=== PATIENT | female | born 1940 | race Caucasian/White ===

== ENCOUNTER 2020-10-08 12:29 | Inpatient (IN) | payer OTHER ==
[~2020-10-08] VITALS: Ht 157.5 cm; Wt 90.7 kg
[2020-10-08] MEDS ORDERED: HORIZANT300 MG (12:45)
[2020-10-08] MEDS ORDERED: SIMVASTATIN80 MG (12:45)
[2020-10-08] MEDS ORDERED: HUMALOG100 UNIT/2 (12:46)
[2020-10-08] MEDS ORDERED: OSTERA TABLET1 EACH (22:07)
[2020-10-08] MEDS ORDERED: SYNTHROID137 MCG (22:07)
[2020-10-08] MEDS ORDERED: OMEPRAZOLE MAGN20 MG (22:07)
[2020-10-08] MEDS ORDERED: IRBESARTAN-HCT1 EAC1 (22:07)
[2020-10-08] MEDS ORDERED: NORVASC2.5 M1 (22:08)
[2020-10-08] MEDS ORDERED: CHILDREN'S ASPI81 MG (22:08)
[2020-10-08] MEDS ORDERED: FOLIC ACID20 MG (22:09)
[2020-10-11] MEDS ORDERED: OMEPRAZOLE20 MG (11:32)
[2020-10-11] MEDS ORDERED: GABAPENTIN600 MG (11:33)
[2020-10-11] MEDS ORDERED: JARDIANCE10 MG (11:33)
[2020-10-11] MEDS ORDERED: LATANOPROST2.5 ML (11:33)
[2020-10-11] MEDS ORDERED: ALLOPURINOL100 MG (11:33)
[2020-10-11] MEDS ORDERED: GEMFIBROZIL600 MG (11:33)
[2020-10-11] MEDS ORDERED: METFORMIN HCL850 M1 (11:34)
[2020-10-11] MEDS ORDERED: SEMGLEE100 UNIT/1 (11:34)
[2020-10-11] MEDS ORDERED: PIOGLITAZONE HC15 MG (11:34)
[2020-10-11] MEDS ORDERED: VITAMIN D3125 MC1 (11:34)
[2020-10-17] MEDS ORDERED: ULTRAM50 MG PO (14:04)
[2020-10-17] MEDS ORDERED: AMOX-CLAV 875-1 EACH PO (14:05)
== END 2020-10-17 17:47 | disposition home or self-care (01) | DRG 330 ==
LOC: ER 12:29 → SURG 20:17 → SEC-K 20:17 → SURG 10-09 02:27
PROVIDERS: ADMIT Surgery; ATTEND Surgery
PROC: B24BZZZ Ultrasonography of Heart with Aorta (ICD-10-PCS; 2020-10-09)
PROC: 02HV33Z Insertion of Infusion Device into Superior Vena Cava, Percutaneous Approach (ICD-10-PCS; 2020-10-09)
PROC: 0DBM8ZX Excision of Descending Colon, Via Natural or Artificial Opening Endoscopic, Diagnostic (ICD-10-PCS; 2020-10-10)
PROC: 0DBL8ZX Excision of Transverse Colon, Via Natural or Artificial Opening Endoscopic, Diagnostic (ICD-10-PCS; 2020-10-10)
PROC: 0DBN8ZX Excision of Sigmoid Colon, Via Natural or Artificial Opening Endoscopic, Diagnostic (ICD-10-PCS; 2020-10-10)
PROC: BW2510Z Computerized Tomography (CT Scan) of Chest, Abdomen and Pelvis using Low Osmolar Contrast, Unenhanced and Enhanced (ICD-10-PCS; 2020-10-10)
PROC: BW2110Z Computerized Tomography (CT Scan) of Abdomen and Pelvis using Low Osmolar Contrast, Unenhanced and Enhanced (ICD-10-PCS; 2020-10-10)
PROC: 07BD0ZX Excision of Aortic Lymphatic, Open Approach, Diagnostic (ICD-10-PCS; 2020-10-11)
PROC: 0DBU0ZZ Excision of Omentum, Open Approach (ICD-10-PCS; 2020-10-11)
PROC: 3E0F7SF Introduction of Other Gas into Respiratory Tract, Via Natural or Artificial Opening (ICD-10-PCS; 2020-10-11)
PROC: 0DTL0ZZ Resection of Transverse Colon, Open Approach (ICD-10-PCS; principal; 2020-10-11 14:30)
PROC: 05PYX3Z Removal of Infusion Device from Upper Vein, External Approach (ICD-10-PCS; 2020-10-17)
DX: K56.609 Unspecified intestinal obstruction, unspecified as to partial versus complete obstruction (principal); C18.4 Malignant neoplasm of transverse colon; R10.9 Unspecified abdominal pain; E11.9 Type 2 diabetes mellitus without complications; Z79.4 Long term (current) use of insulin; R11.2 Nausea with vomiting, unspecified; Z20.822 Contact with and (suspected) exposure to COVID-19; E78.5 Hyperlipidemia, unspecified; I10 Essential (primary) hypertension; N18.9 Chronic kidney disease, unspecified; D72.829 Elevated white blood cell count, unspecified

== ENCOUNTER → 2020-10-18 | Emergency (ER) | payer OTHER ==
[~2020-10-18] VITALS: Ht 157.5 cm; Wt 89.8 kg
[~2020-10-18] MED LIST: ALLOPURINOL100 MG; AMOX-CLAV 875-1 EACH PO; CEPHALEXIN750 MG; CHILDREN'S ASPI81 MG; FOLIC ACID20 MG; GABAPENTIN600 MG; GEMFIBROZIL600 MG; HORIZANT300 MG; HUMALOG100 UNIT/2; IRBESARTAN-HCT1 EAC1; JARDIANCE10 MG; LATANOPROST2.5 ML; METFORMIN HCL850 M1; NORVASC2.5 M1; OMEPRAZOLE MAGN20 MG; OMEPRAZOLE20 MG; OSTERA TABLET1 EACH; PIOGLITAZONE HC15 MG; SEMGLEE100 UNIT/1; SIMVASTATIN80 MG; SYNTHROID137 MCG; ULTRAM50 MG PO; VITAMIN D3125 MC1
== END | disposition home or self-care (01) ==
LOC: ER 13:01
DX: L08.89 Other specified local infections of the skin and subcutaneous tissue (principal); T81.49XA Infection following a procedure, other surgical site, initial encounter; B96.5 Pseudomonas (aeruginosa) (mallei) (pseudomallei) as the cause of diseases classified elsewhere; B96.29 Other Escherichia coli [E. coli] as the cause of diseases classified elsewhere; B96.89 Other specified bacterial agents as the cause of diseases classified elsewhere; Y83.8 Other surgical procedures as the cause of abnormal reaction of the patient, or of later complication, without mention of misadventure at the time of the procedure

== ENCOUNTER 2020-11-23 11:54 | Inpatient (IN) | payer OTHER ==
[~2020-11-23] VITALS: Ht 157.5 cm; Wt 81.6 kg
[~2020-11-23 11:54] MED LIST changes: -CEPHALEXIN750 MG
[2020-11-23] MEDS ORDERED: CEPHALEXIN750 MG (12:36)
== END 2020-11-28 13:57 | disposition home health service (06) | DRG 863 ==
LOC: ER 11:54 → SURG 19:18
PROVIDERS: ADMIT Surgery; ATTEND Surgery
DX: T81.41XA Infection following a procedure, superficial incisional surgical site, initial encounter (principal); L03.311 Cellulitis of abdominal wall; Y83.8 Other surgical procedures as the cause of abnormal reaction of the patient, or of later complication, without mention of misadventure at the time of the procedure; I10 Essential (primary) hypertension; Z79.4 Long term (current) use of insulin; E03.8 Other specified hypothyroidism; B96.89 Other specified bacterial agents as the cause of diseases classified elsewhere; B96.29 Other Escherichia coli [E. coli] as the cause of diseases classified elsewhere; E11.65 Type 2 diabetes mellitus with hyperglycemia

== ENCOUNTER 2021-05-29 20:45 | Emergency (ER) | payer OTHER ==
[~2021-05-29] VITALS: Ht 162.6 cm; Wt 90.7 kg
[~2021-05-29 20:45] MED LIST changes: +CEPHALEXIN750 MG
[2021-05-29] MEDS ORDERED: LANTUS SOL100 UNIT/1 (21:01)
[2021-05-29] MEDS ORDERED: SIMVASTATIN20 MG (21:01)
[2021-05-29] MEDS ORDERED: NORVASC2.5 MG (21:02)
[2021-05-29] MEDS ORDERED: GRALISE600 MG (21:03)
[2021-05-29] MEDS ORDERED: JARDIANCE10 MG (21:03)
[2021-05-29] MEDS ORDERED: PEPCID AC20 MG PO (23:30)
[2021-05-29] MEDS ORDERED: LEVSIN/SL0.125 MG SL (23:30)
== END 2021-05-29 23:37 | disposition home or self-care (01) ==
LOC: ER 20:45
DX: R10.9 Unspecified abdominal pain (principal); Z86.39 Personal history of other endocrine, nutritional and metabolic disease; Z86.79 Personal history of other diseases of the circulatory system

== ENCOUNTER 2021-06-07 15:17 | Inpatient (IN) | payer OTHER ==
[~2021-06-07] VITALS: Ht 167.6 cm; Wt 86.2 kg
[~2021-06-07 15:17] MED LIST changes: +GRALISE600 MG; +LANTUS SOL100 UNIT/1; +LEVSIN/SL0.125 MG SL; +NORVASC2.5 MG; +PEPCID AC20 MG PO; +SIMVASTATIN20 MG
--- NOTE | 2021-06-07 15:29 | NUR ---
SE RECIBE PTE ALERTA Y ORIENTADA X2 EN AMBULANCIA. PTE ACEPTADA DE TRANSFER PTE SE OBSERVA CON H/L X2 COLOCADOS CON IV FLUIDS. PTE CON TUBO NGT COLOCADO Y CLAMPEADO EN FOSSA LT. PTE CON MANNING COLOCADO BAJANDO A GRAVEDAD. PTE TOMMIE AL MOMENTO DE REALIZARLE EL TRIAGE. SE MIDEN S/V A PTE Y SE COLOCA EN MICHELLE.
--- NOTE | 2021-06-07 15:44 | NUR ---
JAMAR EVALUA PTE. SE EDUCA A PTE SOBRE [place] MEDICO. PTE REFIERE COMPRENDER. SE REALIZAN MUESTRAS DE LABORATORIO BAJO MEDIDAS ASEPTICAS. SE ADMINISTRA IV'S MONICA ORDEN MEDICA.
--- NOTE | 2021-06-07 18:13 | NUR ---
PTE SE MARIN TUBO NGT
--- NOTE | 2021-06-07 19:57 | NUR ---
SE NOTIFICA TERAPIA RESPIRATORIA A GOODMAN.
== END 2021-06-20 16:07 | DRG 329 ==
LOC: ER 15:17 → ICU 20:28 → SURH 20:28 → ICU-2 22:35 → ICU 06-09 21:08 → SURH 06-19 18:52
PROVIDERS: Surgery; ADMIT Internal Medicine; ATTEND Internal Medicine
PROC: 02HV33Z Insertion of Infusion Device into Superior Vena Cava, Percutaneous Approach (ICD-10-PCS; 2021-06-08)
PROC: BW21YZZ Computerized Tomography (CT Scan) of Abdomen and Pelvis using Other Contrast (ICD-10-PCS; 2021-06-12)
PROC: 0WQF0ZZ Repair Abdominal Wall, Open Approach (ICD-10-PCS; 2021-06-13)
PROC: 0DBU0ZZ Excision of Omentum, Open Approach (ICD-10-PCS; 2021-06-13)
PROC: 0DQ80ZZ Repair Small Intestine, Open Approach (ICD-10-PCS; principal; 2021-06-13 16:00)
PROC: 4A12X4Z Monitoring of Cardiac Electrical Activity, External Approach (ICD-10-PCS; 2021-06-19)
DX: K43.0 Incisional hernia with obstruction, without gangrene (principal); E11.10 Type 2 diabetes mellitus with ketoacidosis without coma; R65.21 Severe sepsis with septic shock; N17.8 Other acute kidney failure; E87.5 Hyperkalemia; R09.02 Hypoxemia; D72.828 Other elevated white blood cell count; K66.8 Other specified disorders of peritoneum; E86.0 Dehydration; R63.0 Anorexia; E03.8 Other specified hypothyroidism; I48.91 Unspecified atrial fibrillation; E11.40 Type 2 diabetes mellitus with diabetic neuropathy, unspecified; E78.49 Other hyperlipidemia; Z79.4 Long term (current) use of insulin; I12.9 Hypertensive chronic kidney disease with stage 1 through stage 4 chronic kidney disease, or unspecified chronic kidney disease; E11.22 Type 2 diabetes mellitus with diabetic chronic kidney disease; N18.9 Chronic kidney disease, unspecified; I73.89 Other specified peripheral vascular diseases; Z20.822 Contact with and (suspected) exposure to COVID-19